=== PATIENT | female | born 1965 | race African-American/Black ===

== ENCOUNTER 2017-09-10 11:32 | Emergency (ER) | payer MEDICARE, MEDICAID | END 2017-09-10 13:30 | disposition home or self-care (01) | LOC: ERS 11:32 | DX: M19.072 Primary osteoarthritis, left ankle and foot (principal); I10 Essential (primary) hypertension; E03.9 Hypothyroidism, unspecified; J45.909 Unspecified asthma, uncomplicated; M06.9 Rheumatoid arthritis, unspecified; I25.10 Atherosclerotic heart disease of native coronary artery without angina pectoris; K21.9 Gastro-esophageal reflux disease without esophagitis; F41.9 Anxiety disorder, unspecified; F31.9 Bipolar disorder, unspecified; F20.9 Schizophrenia, unspecified | CPT/HCPCS: 99282 ==

== ENCOUNTER 2017-10-19 21:14 | Emergency (ER) | payer MEDICARE, MEDICAID | END 2017-10-19 22:55 | disposition home or self-care (01) | LOC: ERS 21:14 | DX: J20.9 Acute bronchitis, unspecified (principal); E03.9 Hypothyroidism, unspecified; I10 Essential (primary) hypertension; J45.909 Unspecified asthma, uncomplicated; M06.9 Rheumatoid arthritis, unspecified; I25.10 Atherosclerotic heart disease of native coronary artery without angina pectoris; K21.9 Gastro-esophageal reflux disease without esophagitis; F41.9 Anxiety disorder, unspecified; F31.9 Bipolar disorder, unspecified; F20.9 Schizophrenia, unspecified; Z86.73 Personal history of transient ischemic attack (TIA), and cerebral infarction without residual deficits | CPT/HCPCS: 87804; 99283 ==

== ENCOUNTER 2017-10-30 10:52 | Emergency (ER) | payer MEDICARE, MEDICAID | END 2017-10-30 11:36 | disposition left against medical advice (07) | LOC: ERS 10:52 | DX: Z53.21 Procedure and treatment not carried out due to patient leaving prior to being seen by health care provider (principal) ==

== ENCOUNTER 2017-11-15 12:06 | Outpatient (CLI) | payer MEDICARE, MEDICAID | END 2017-11-15 12:07 | disposition home or self-care (01) | LOC: BICMAMMO 12:06 | PROVIDERS: ATTEND Internal Medicine | DX: Z12.31 Encounter for screening mammogram for malignant neoplasm of breast (principal); K21.9 Gastro-esophageal reflux disease without esophagitis; R92.1 Mammographic calcification found on diagnostic imaging of breast; M16.0 Bilateral primary osteoarthritis of hip; Z80.3 Family history of malignant neoplasm of breast | CPT/HCPCS: 74018; 77063; 77067 ==

== ENCOUNTER 2018-01-12 00:10 | Emergency (ER) | payer MEDICARE, OTHER ==
[2018-01-12] MEDS ORDERED: Bacitracin Zinc 1 Packet ONE (01:56)
== END 2018-01-12 02:02 | disposition home or self-care (01) ==
LOC: ERS 00:10
DX: R04.0 Epistaxis (principal); J30.9 Allergic rhinitis, unspecified; E03.9 Hypothyroidism, unspecified; K21.9 Gastro-esophageal reflux disease without esophagitis; I10 Essential (primary) hypertension; M06.9 Rheumatoid arthritis, unspecified; F41.9 Anxiety disorder, unspecified; F31.9 Bipolar disorder, unspecified; F20.9 Schizophrenia, unspecified; Z86.73 Personal history of transient ischemic attack (TIA), and cerebral infarction without residual deficits
CPT/HCPCS: 99283

== ENCOUNTER 2018-01-17 10:19 | Emergency (ER) | payer MEDICARE, MEDICAID | END 2018-01-17 12:39 | disposition home or self-care (01) | LOC: ERS 10:19 | DX: R04.0 Epistaxis (principal); E03.9 Hypothyroidism, unspecified; I10 Essential (primary) hypertension; F31.9 Bipolar disorder, unspecified; F20.9 Schizophrenia, unspecified; F41.9 Anxiety disorder, unspecified; K21.9 Gastro-esophageal reflux disease without esophagitis; M06.9 Rheumatoid arthritis, unspecified; Z86.73 Personal history of transient ischemic attack (TIA), and cerebral infarction without residual deficits; Z79.899 Other long term (current) drug therapy | CPT/HCPCS: 99283 ==

== ENCOUNTER 2018-01-18 09:24 | Emergency (ER) | payer MEDICARE, MEDICAID ==
[2018-01-18 10:11] LABS: #Eosinphils 0.1 thou/uL (0.0-0.7); #Lymphocytes 1.3 thou/uL (1.20-3.40); #Monocytes 0.3 thou/uL (0.11-0.59); #Neutrophils 1.7 thou/uL (1.40-6.50); %Lymphocytes 38.6 % (21.0-51.0); %Monocytes 8.3 % (0.0-10.0); %Neutrophils 50.2 % (42.0-75.0); Hemoglobin 12.4 g/dL (12.0-16.0); Mean Corpuscular Hemoglobin 30.7 pg (27.0-31.0); Mean Corpuscular Volume 93.2 fl (81.0-99.0); Mean Platelet Volume 7.1 fL (7.4-10.4); Platelet Count 331 thou/uL (130-400); RBC Distribution Width 12.6 % (11.5-14.5); Red Blood Cell (RBC) Count 4.05 mill/uL (4.20-5.40); White Blood Cell (WBC) Count 3.3 thou/uL (4.8-10.8)
[2018-01-18 10:19] LABS: PTT 25.9 SEC (22.9-36.1); Prothrombin Time 13.1 SEC (12.0-14.7)
[2018-01-18 10:31] LABS: ALT (SGPT) 28 U/L (8-55); AST (SGOT) 37 U/L (5-34); Albumin 4.1 g/dL (3.5-5.0); Alkaline Phosphatase 58 U/L (40-150); Anion Gap 13 mmol/L (10-20); BUN (Urea Nitrogen) 12 mg/dL (9.8-20.1); Bilirubin, Total 0.4 mg/dL (0.2-1.2); Calc. Creatinine Clearance 0 mL/min (70-130); Calcium 9.1 mg/dL (7.8-10.44); Carbon Dioxide 24 mmol/L (22-29); Chloride 107 mmol/L (98-107); Estimated GFR-MDRD Greater than 90; Globulin 4.2 g/dL (2.4-3.5); Glucose 105 mg/dL (70-105); Potassium 4.3 mmol/L (3.5-5.1); Protein, Total 8.3 g/dL (6.0-8.3); Sodium 140 mmol/L (136-145)
[2018-01-18] MEDS ORDERED: Ondansetron HCl/PF 4 MG/2 ML Vial ONE (11:03)
[2018-01-18] MEDS ORDERED: Oxymetazoline HCl 0.05% ( 15 ML ) ONE (11:03)
[2018-01-18] MEDS ORDERED: cloNIDine 0.1 MG TAB ONE (11:27)
== END 2018-01-18 11:35 | disposition home or self-care (01) ==
LOC: ERS 09:24
DX: R04.0 Epistaxis (principal); I10 Essential (primary) hypertension; J45.909 Unspecified asthma, uncomplicated; E03.9 Hypothyroidism, unspecified; K21.9 Gastro-esophageal reflux disease without esophagitis; M06.9 Rheumatoid arthritis, unspecified; F41.9 Anxiety disorder, unspecified; F31.9 Bipolar disorder, unspecified; F20.9 Schizophrenia, unspecified; Z86.73 Personal history of transient ischemic attack (TIA), and cerebral infarction without residual deficits; Z79.899 Other long term (current) drug therapy
CPT/HCPCS: 80053; 85025; 85610; 85730; 96374; J2405

== ENCOUNTER 2018-02-04 10:22 | Emergency (ER) | payer MEDICARE, MEDICAID | END 2018-02-04 11:37 | disposition home or self-care (01) | LOC: ERS 10:22 | DX: S76.312A Strain of muscle, fascia and tendon of the posterior muscle group at thigh level, left thigh, initial encounter (principal); M17.11 Unilateral primary osteoarthritis, right knee; E03.9 Hypothyroidism, unspecified; K21.9 Gastro-esophageal reflux disease without esophagitis; I10 Essential (primary) hypertension; Z86.73 Personal history of transient ischemic attack (TIA), and cerebral infarction without residual deficits; F41.9 Anxiety disorder, unspecified; F31.9 Bipolar disorder, unspecified; F20.9 Schizophrenia, unspecified; Z79.899 Other long term (current) drug therapy; X50.1XXA Overexertion from prolonged static or awkward postures, initial encounter | CPT/HCPCS: 99283 ==

== ENCOUNTER 2018-02-13 10:14 | Emergency (ER) | payer MEDICARE, MEDICAID ==
[2018-02-13 11:09] LABS: #Eosinphils 0.1 thou/uL (0.0-0.7); #Lymphocytes 1.2 thou/uL (1.20-3.40); #Monocytes 0.3 thou/uL (0.11-0.59); #Neutrophils 2.2 thou/uL (1.40-6.50); %Basophils 0.9 % (0.0-1.0); %Eosinophils 2.3 % (0.0-10.0); %Lymphocytes 31.6 % (21.0-51.0); %Monocytes 8.3 % (0.0-10.0); %Neutrophils 56.9 % (42.0-75.0); Hemoglobin 12.1 g/dL (12.0-16.0); Mean Corpuscular HGB CONC 33.4 g/dL (32.0-36.0); Mean Corpuscular Hemoglobin 31.2 pg (27.0-31.0); Mean Corpuscular Volume 93.4 fl (81.0-99.0); Mean Platelet Volume 6.6 fL (7.4-10.4); Platelet Count 380 thou/uL (130-400); RBC Distribution Width 12.8 % (11.5-14.5); Red Blood Cell (RBC) Count 3.88 mill/uL (4.20-5.40); White Blood Cell (WBC) Count 3.9 thou/uL (4.8-10.8)
[2018-02-13 11:27] LABS: ALT (SGPT) 21 U/L (8-55); AST (SGOT) 28 U/L (5-34); Albumin 4.1 g/dL (3.5-5.0); Alkaline Phosphatase 59 U/L (40-150); Anion Gap 12 mmol/L (10-20); BUN (Urea Nitrogen) 18 mg/dL (9.8-20.1); Bilirubin, Total 0.6 mg/dL (0.2-1.2); CRP (Inflammatory) 2.02 mg/dL (= or < 0.5); Calc. Creatinine Clearance 0 mL/min (70-130); Calcium 9.6 mg/dL (7.8-10.44); Carbon Dioxide 29 mmol/L (22-29); Chloride 104 mmol/L (98-107); Estimated GFR-MDRD Greater than 90; Globulin 4.2 g/dL (2.4-3.5); Glucose 109 mg/dL (70-105); Potassium 4.3 mmol/L (3.5-5.1); Protein, Total 8.3 g/dL (6.0-8.3); Sodium 141 mmol/L (136-145)
--- NOTE | 2018-02-13 12:19 | RAD ---
LEFT KNEE FOUR VIEWS: History: 52-year-old female with bilateral knee pain, right worse than left, with swelling. FINDINGS: Osteoarthrosis changes are noted, particularly involving the femoral patellar compartment as well as the medial compartment followed by the lateral compartment. No acute fracture or dislocation. No evid ence for abnormal joint effusion. IMPRESSION: Tricompartment degenerative and osteoarthrosis changes without acute fracture or dislocation. POS: [facility]
--- NOTE | 2018-02-13 12:27 | RAD ---
RIGHT KNEE FOUR VIEWS: History: 52-year-old female with history of bilateral knee pain, worse on the right side. Comparison: 03-24-16 FINDINGS: Tricompartment arthrosis and degenerative changes, most marked involving the femoral patellar compart ment followed by the medial compartment. There is marked distention of the suprapatellar recess, evid ence for a large joint effusion which is worse than on the prior 03-24-16 study. No acute fracture or d islocation. IMPRESSION: Significant distension of the suprapatellar recess, evidence for extensive joint effusion. Tricompart ment arthrosis and degenerative changes of the knee joint without acute fracture or dislocation. Depe nding upon concern, a follow up nonemergent MRI study might allow further assessment in regards to th e etiology of the extensive knee joint fluid. No acute fracture or dislocation. POS: [facility]
== END 2018-02-13 12:13 | disposition home or self-care (01) ==
LOC: ERS 10:14
DX: M17.11 Unilateral primary osteoarthritis, right knee (principal); E03.9 Hypothyroidism, unspecified; K21.9 Gastro-esophageal reflux disease without esophagitis; I10 Essential (primary) hypertension; M06.9 Rheumatoid arthritis, unspecified; F41.9 Anxiety disorder, unspecified; F31.9 Bipolar disorder, unspecified; F20.9 Schizophrenia, unspecified; Z86.73 Personal history of transient ischemic attack (TIA), and cerebral infarction without residual deficits; Z79.899 Other long term (current) drug therapy
CPT/HCPCS: 36415; 80053; 85025; 85652; 86140

== ENCOUNTER 2018-04-19 12:24 | Emergency (ER) | payer MEDICARE, MEDICAID ==
[~2018-04-19 12:24] MED LIST: ISOVUE-370 76%-LOCM 1 ML ONE
[2018-04-19 13:00] LABS: #Basophils 0.1 thou/uL (0.0-0.2); #Eosinphils 0.1 thou/uL (0.0-0.7); #Lymphocytes 1.4 thou/uL (1.20-3.40); #Monocytes 0.5 thou/uL (0.11-0.59); #Neutrophils 4.9 thou/uL (1.40-6.50); %Basophils 1.1 % (0.0-1.0); %Eosinophils 1.6 % (0.0-10.0); %Lymphocytes 19.3 % (21.0-51.0); %Monocytes 7.5 % (0.0-10.0); %Neutrophils 70.5 % (42.0-75.0); Hemoglobin 13.5 g/dL (12.0-16.0); Mean Corpuscular HGB CONC 33.2 g/dL (32.0-36.0); Mean Corpuscular Hemoglobin 31.2 pg (27.0-31.0); Mean Corpuscular Volume 93.9 fL (78.0-98.0); Mean Platelet Volume 7.1 fL (7.4-10.4); Platelet Count 311 thou/uL (130-400); RBC Distribution Width 12.9 % (11.5-14.5); Red Blood Cell (RBC) Count 4.33 mill/uL (4.20-5.40)
[2018-04-19 13:17] LABS: CKMB 1.6 ng/mL (0-6.6); Troponin I Less than 0.010 ng/mL (< 0.028)
[2018-04-19 13:18] LABS: ALT (SGPT) 47 U/L (8-55); AST (SGOT) 67 U/L (5-34); Albumin 4.3 g/dL (3.5-5.0); Alkaline Phosphatase 66 U/L (40-150); Anion Gap 13 mmol/L (10-20); BUN (Urea Nitrogen) 12 mg/dL (9.8-20.1); Bilirubin, Total 0.5 mg/dL (0.2-1.2); CK (CPK) 1035 U/L (29-168); Calc. Creatinine Clearance 0 mL/min (70-130); Calcium 9.7 mg/dL (7.8-10.44); Carbon Dioxide 26 mmol/L (22-29); Chloride 102 mmol/L (98-107); Estimated GFR-MDRD Greater than 90; Globulin 4.4 g/dL (2.4-3.5); Glucose 101 mg/dL (70-105); Lipase 20 U/L (8-78); Potassium 4.2 mmol/L (3.5-5.1); Protein, Total 8.7 g/dL (6.0-8.3); Sodium 137 mmol/L (136-145)
--- NOTE | 2018-04-19 13:37 | RAD ---
SINGLE VIEW CHEST: HISTORY: Chest pain. COMPARISON: 05/20/2016 FINDINGS: Single view of the chest show normal sized cardiomediastinal silhouette. There is no evidence of cons olidation, mass, or pleural effusion. The bones are unremarkable. IMPRESSION: No evidence of acute cardiopulmonary disease. POS: [facility]
--- NOTE | 2018-04-19 14:10 | CT ---
POST CONTRAST SOFT TISSUE NECK CT: History: Throat pain, difficulty swallowing. Comparison: None. Technique: Post contrast soft tissue neck CT was performed in the axial plane. Reformatted images are submitted for interpretation. FINDINGS: The visualized brain parenchyma and orbits are unremarkable. Adequate aeration of the mastoid air cells. Mild mucosal disease of maxillary sinuses. There is mass effect upon the posterior left and right supraglottic larynx and hypopharynx due to med ialization of both carotid arteries. Overall, the aerodigestive digestive tract is patent. No mucosal abnormality. No obvious masses within the oral cavity. Evaluation is slightly limited by artifact. M idline fatty roof of the tongue is preserved. Symmetric attenuation of parotid and submandibular glands. Thyroid gland is minimally heterogenous wi th respect to the left thyroid lobe. Symmetric attenuation of the sternocleidomastoid muscle. No evid ence of lymphadenopathy. There is no prevertebral soft tissue swelling. There are varying degrees of central canal stenosis and neural foraminal narrowing on the basis of de generative change. There is extensive osteophyte formation of the cervical spine noted. Upper mediastinum and lung apices are unremarkable. IMPRESSION: 1. No acute abnormality with regards to the soft tissues of the neck. No evidence of a peritonsillar abscess. 2. Degenerative change of the cervical spine with varying degrees of central canal stenosis and cloby inal narrowing. Extensive osteophyte formation. 3. Mildly heterogeneous left thyroid lobe. Non-emergent thyroid ultrasound. POS: [facility]
[2018-04-19] MEDS ORDERED: Dexamethasone 4 mg/ml Vial ONE (15:04)
== END 2018-04-19 15:19 | disposition home or self-care (01) ==
LOC: ERS 12:24
DX: J02.9 Acute pharyngitis, unspecified (principal); E03.9 Hypothyroidism, unspecified; K21.9 Gastro-esophageal reflux disease without esophagitis; I10 Essential (primary) hypertension; M19.90 Unspecified osteoarthritis, unspecified site; F31.9 Bipolar disorder, unspecified; F41.9 Anxiety disorder, unspecified; F20.9 Schizophrenia, unspecified; Z86.73 Personal history of transient ischemic attack (TIA), and cerebral infarction without residual deficits; Z79.899 Other long term (current) drug therapy
CPT/HCPCS: 36415; 70491; 71045; 80053; 82550; 82553; 83690; 84484; 85025; 87081; 87430; 93005; 94760; 96361; 96374; J1100

== ENCOUNTER 2018-05-06 12:54 | Emergency (ER) | payer MEDICARE, MEDICAID | END 2018-05-06 14:03 | disposition home or self-care (01) | LOC: ERS 12:54 | DX: H65.92 Unspecified nonsuppurative otitis media, left ear (principal); E03.9 Hypothyroidism, unspecified; K21.9 Gastro-esophageal reflux disease without esophagitis; I10 Essential (primary) hypertension; M06.9 Rheumatoid arthritis, unspecified; F41.9 Anxiety disorder, unspecified; F32.9 Major depressive disorder, single episode, unspecified; Z86.73 Personal history of transient ischemic attack (TIA), and cerebral infarction without residual deficits | CPT/HCPCS: 99282 ==

== ENCOUNTER 2018-11-27 20:40 | Emergency (ER) | payer MEDICARE, MEDICAID ==
[2018-11-27] MEDS ORDERED: Oxymetazoline HCl 0.05% ( 15 ML ) ONE (21:49)
== END 2018-11-27 23:06 | disposition home or self-care (01) ==
LOC: ERS 20:40
DX: R04.0 Epistaxis (principal); E03.9 Hypothyroidism, unspecified; K21.9 Gastro-esophageal reflux disease without esophagitis; I10 Essential (primary) hypertension; Z86.73 Personal history of transient ischemic attack (TIA), and cerebral infarction without residual deficits; F41.9 Anxiety disorder, unspecified; F31.9 Bipolar disorder, unspecified; F20.9 Schizophrenia, unspecified; Z79.899 Other long term (current) drug therapy
CPT/HCPCS: 30903

== ENCOUNTER 2019-02-11 09:36 | Emergency (ER) | payer MEDICARE, MEDICAID ==
[2019-02-11 12:01] LABS: Hemoglobin 12.9 g/dL (12.0-16.0)
== END 2019-02-11 12:15 | disposition home or self-care (01) ==
LOC: ERS 09:36
DX: R04.0 Epistaxis (principal); E03.9 Hypothyroidism, unspecified; K21.9 Gastro-esophageal reflux disease without esophagitis; I10 Essential (primary) hypertension; Z86.73 Personal history of transient ischemic attack (TIA), and cerebral infarction without residual deficits; F41.9 Anxiety disorder, unspecified; F31.9 Bipolar disorder, unspecified; F20.9 Schizophrenia, unspecified; Z79.899 Other long term (current) drug therapy
CPT/HCPCS: 85014; 85018; 99283

== ENCOUNTER 2019-10-12 01:13 | Emergency (ER) | payer MEDICAID, MEDICARE, OTHER ==
[2019-10-12 02:06] LABS: Bilirubin Negative (Negative); Blood, Urine Negative (Negative); Clarity Clear (Clear); Glucose, Urine (Dipstick) Normal (Negative); Leukocyte Negative Leu/uL (Negative); Nitrite Negative (Negative); Protein, Urine (Dipstick) Negative (Neg-Trace); Urobilinogen Normal mg/dL (Less than 2)
[2019-10-12 02:07] LABS: Pregnancy Test - Urine (BHCG) Negative (Negative); Pregu Control Background? CLEAR/WHITE (CLR/WHITE); Pregu Control Bar Appear? YES (CONTROL BAR); Specific Gravity 1.003 (1.002-1.036)
== END 2019-10-12 03:11 | disposition home or self-care (01) ==
LOC: ERS 01:13
DX: M54.5 Low back pain (principal); K21.9 Gastro-esophageal reflux disease without esophagitis; E03.9 Hypothyroidism, unspecified; I10 Essential (primary) hypertension; F20.9 Schizophrenia, unspecified; M06.9 Rheumatoid arthritis, unspecified; Z86.73 Personal history of transient ischemic attack (TIA), and cerebral infarction without residual deficits; Z79.899 Other long term (current) drug therapy
CPT/HCPCS: 81003; 81025; 99283

== ENCOUNTER 2020-07-12 01:22 | Emergency (ER) | payer MEDICARE, MEDICAID ==
[2020-07-12] MEDS ORDERED: Ketorolac Tromethamine 30 MG/ML VIAL ONE (01:55)
[2020-07-12 02:09] LABS: #Lymphocytes 1.4 thou/uL (1.20-3.40); #Monocytes 0.5 thou/uL (0.11-0.59); #Neutrophils 6.1 thou/uL (1.40-6.50); %Basophils 0.4 % (0.0-1.0); %Eosinophils 0.6 % (0.0-10.0); %Lymphocytes 17.1 % (21.0-51.0); %Monocytes 5.7 % (0.0-10.0); %Neutrophils 76.2 % (42.0-75.0); Hemoglobin 13.3 g/dL (12.0-16.0); Mean Corpuscular HGB CONC 33.6 g/dL (32.0-36.0); Mean Corpuscular Hemoglobin 31.7 pg (27.0-31.0); Mean Corpuscular Volume 94.4 fL (78.0-98.0); Mean Platelet Volume 8.1 fL (7.4-10.4); Platelet Count 318 thou/uL (130-400); RBC Distribution Width 13.2 % (11.5-14.5); Red Blood Cell (RBC) Count 4.18 mill/uL (4.20-5.40)
[2020-07-12 03:06] LABS: Albumin 3.5 g/dL (3.5-5.0)
[2020-07-12 03:07] LABS: Chloride 101 mmol/L (98-107); Potassium 3.6 mmol/L (3.5-5.1); Sodium 134 mmol/L (136-145)
[2020-07-12 03:08] LABS: Calcium 8.7 mg/dL (7.8-10.44); Glucose 105 mg/dL (70-105)
[2020-07-12 03:09] LABS: Globulin 3.8 g/dL (2.4-3.5); Protein, Total 7.3 g/dL (6.0-8.3)
[2020-07-12 03:10] LABS: Anion Gap 17 mmol/L (10-20); Bilirubin, Total 0.3 mg/dL (0.2-1.2); Carbon Dioxide 20 mmol/L (22-29)
[2020-07-12 03:11] LABS: Alkaline Phosphatase 68 U/L (40-110)
[2020-07-12 03:12] LABS: Calc. Creatinine Clearance 0 mL/min (70-130); Estimated GFR-MDRD Greater than 90
[2020-07-12 03:13] LABS: AST (SGOT) 55 U/L (5-34); BUN (Urea Nitrogen) 9 mg/dL (9.8-20.1)
[2020-07-12 03:14] LABS: ALT (SGPT) 42 U/L (8-55)
--- NOTE | 2020-07-12 08:17 | CT ---
PRELIMINARY REPORT/[facility]/EMERGENCY AFTER HOURS PROCEDURE: Receipt of this report by the clinical staff was confirmed with Rosa Moe RN by Lila Lama on Jul 12, 2020 02:44:00 CDT. Addendum electronically signed by Lila Lama on July 12, 2020 2:44:51 AM CDT EXAM: CT Abdomen and Pelvis Without Intravenous Contrast CLINICAL HISTORY: RLQ PAIN THAT STARTED 3 HOURS AGO. Surgical history of hysterectomy *pt refusing IV contrast TECHNIQUE: Axial computed tomography images of the abdomen and pelvis without intravenous contrast. CONTRAST: None. COMPARISON: None provided. FINDINGS: LUNG BASES: 3-4 mm lateral right lower lobe lung nodule (series 2, image 3), requiring a further foll ow-up. No basilar airspace consolidation or pleural effusion. LIVER: Hepatic steatosis. GALLBLADDER AND BILE DUCTS: Unremarkable. No calcified stone. No ductal dilation. PANCREAS: Unremarkable. SPLEEN: Normal. Inferior marginal splenule. ADRENAL GLANDS: Unremarkable. KIDNEYS, URETERS, AND BLADDER: Likely senescent bilateral symmetric, perinephric stranding. No hydro nephrosis or nephrolithiasis. No ureteral or bladder calculi. Unremarkable ureters and urinary bladder. STOMACH AND BOWEL: No obstruction. The stomach and small bowel are within normal limits. There is m ild wall thickening and pericolonic stranding about the distal sigmoid colon, with multiple associated diverticula. APPENDIX: No CT evidence for appendicitis. PERITONEUM: No free fluid. No free air. No organized fluid collections. LYMPH NODES: No lymphadenopathy. REPRODUCTIVE: Post hysterectomy. Unremarkable adnexa. Phleboliths within the gonadal veins. VASCULATURE: No aortic aneurysm. ABDOMINAL WALL AND SOFT TISSUES: Unremarkable. BONES: Findings suggestive of bilateral femoral head AVN, without femoral head collapse. Mild degene rative disc disease of the lumbar spine, notably at L4-L5. IMPRESSION: 1. Findings suggestive of sigmoid diverticulitis/colitis. 2. 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 3. Hepatic steatosis. ELECTRONICALLY SIGNED BY: Patrice Neville MD Jul 12, 2020 2:36:10 AM CDT FINAL REPORT EMERGENT AFTER HOURS NONCONTRAST CT ABDOMEN AND PELVIS: HISTORY: Right lower quadrant abdominal pain that started 3 hours ago. History of prior hysterectomy. COMPARISON: None IMPRESSION: 1. Nonspecific 4 mm pulmonary nodule right lower lobe. 2. Colonic diverticula involving the descending and sigmoid colon. There is wall thickening involving the sigmoid colon with adjacent inflammatory changes. Findings are likely attributable to diverticulitis/colitis. Follow-up evaluation is recommended to ensure resolution of bowel wall thicke jaylin. 3. Hepatic steatosis with areas of fatty sparing in the left hepatic lobe. 4. Osteonecrosis involving the femoral heads bilaterally. 5. Evidence of hysterectomy. 6. Findings are in agreement with preliminary report by [facility]. Transcribed Date/Time: 07/12/2020 8:38 AM
== END 2020-07-12 04:14 | disposition home or self-care (01) ==
LOC: ERS 01:22
DX: K57.32 Diverticulitis of large intestine without perforation or abscess without bleeding (principal); E03.9 Hypothyroidism, unspecified; K21.9 Gastro-esophageal reflux disease without esophagitis; I10 Essential (primary) hypertension; Z86.73 Personal history of transient ischemic attack (TIA), and cerebral infarction without residual deficits; F41.9 Anxiety disorder, unspecified; F32.9 Major depressive disorder, single episode, unspecified; F20.9 Schizophrenia, unspecified; Z79.899 Other long term (current) drug therapy
CPT/HCPCS: 36415; 74176; 80053; 85025; 96374; J1885

== ENCOUNTER 2021-11-01 05:19 | Emergency (ER) | payer MEDICARE, MEDICAID | END 2021-11-01 05:59 | disposition home or self-care (01) | LOC: ERS 05:19 | DX: B34.9 Viral infection, unspecified (principal); E03.9 Hypothyroidism, unspecified; K21.9 Gastro-esophageal reflux disease without esophagitis; I10 Essential (primary) hypertension; Z86.73 Personal history of transient ischemic attack (TIA), and cerebral infarction without residual deficits | CPT/HCPCS: 99284 ==

== ENCOUNTER 2021-11-08 09:19 | Emergency (ER) | payer MEDICARE, MEDICAID ==
[2021-11-08 09:54] LABS: Hemoglobin 13.6 g/dL (12.0-16.0); Mean Corpuscular HGB CONC 32.7 g/dL (32.0-36.0); Mean Corpuscular Hemoglobin 30.2 pg (27.0-31.0); Mean Corpuscular Volume 92.2 fL (78.0-98.0); Platelet Count 288 thou/uL (130-400); RBC Distribution Width 12.3 % (11.5-14.5); Red Blood Cell (RBC) Count 4.49 mill/uL (4.20-5.40); White Blood Cell (WBC) Count 3.4 thou/uL (4.8-10.8)
[2021-11-08 10:09] LABS: ALT (SGPT) 44 U/L (8-55); AST (SGOT) 62 U/L (5-34); Albumin 3.8 g/dL (3.5-5.0); Alkaline Phosphatase 59 U/L (40-110); Anion Gap 18 mmol/L (10-20); BUN (Urea Nitrogen) 9 mg/dL (9.8-20.1); Bilirubin, Total 0.4 mg/dL (0.2-1.2); Calc. Creatinine Clearance 0 mL/min (70-130); Calcium 9.1 mg/dL (7.8-10.44); Carbon Dioxide 21 mmol/L (22-29); Chloride 102 mmol/L (98-107); Globulin 4.5 g/dL (2.4-3.5); Glucose 115 mg/dL (70-105); Lipase 32 U/L (8-78); Potassium 3.7 mmol/L (3.5-5.1); Protein, Total 8.3 g/dL (6.0-8.3); Sodium 137 mmol/L (136-145)
[2021-11-08 10:17] LABS: Band 3 % (5-11); Lymphocytes 53 % (21-51); MDiff Complete? YES; Metamyelocyte 2 % (0-0); Monocytes 2 % (0-10); Myelocyte 3 % (0-0); Neutrophil 31 % (42-75); RBC Morphology Normal; Reactive Lymphocytes 6 % (0-10)
== END 2021-11-08 11:58 | disposition home or self-care (01) ==
LOC: ERS 09:19
DX: R07.89 Other chest pain (principal); R05.9 Cough, unspecified; E03.9 Hypothyroidism, unspecified; K21.9 Gastro-esophageal reflux disease without esophagitis; I10 Essential (primary) hypertension; M06.9 Rheumatoid arthritis, unspecified; Z86.73 Personal history of transient ischemic attack (TIA), and cerebral infarction without residual deficits; Z79.899 Other long term (current) drug therapy
CPT/HCPCS: 71045; 80053; 83690; 84484; 85025; 93005; 94760

== ENCOUNTER 2022-06-04 00:25 | Emergency (ER) | payer MEDICARE, MEDICAID ==
[2022-06-04 01:09] LABS: #Basophils 0.1 thou/uL (0.0-0.2); #Eosinphils 0.1 thou/uL (0.0-0.7); #Lymphocytes 2.5 thou/uL (1.20-3.40); #Monocytes 0.5 thou/uL (0.11-0.59); #Neutrophils 2.6 thou/uL (1.40-6.50); %Eosinophils 2.5 % (0.0-10.0); %Neutrophils 44.6 % (42.0-75.0); Mean Corpuscular HGB CONC 34.3 g/dL (32.0-36.0); Mean Corpuscular Hemoglobin 32.3 pg (27.0-31.0); Mean Corpuscular Volume 94.2 fL (78.0-98.0); Mean Platelet Volume 6.6 fL (7.4-10.4); Platelet Count 293 thou/uL (130-400); Red Blood Cell (RBC) Count 4.01 mill/uL (4.20-5.40); White Blood Cell (WBC) Count 5.9 thou/uL (4.8-10.8)
[2022-06-04 01:22] LABS: ALT (SGPT) 37 U/L (8-55); AST (SGOT) 77 U/L (5-34); Albumin 3.6 g/dL (3.5-5.0); Alkaline Phosphatase 80 U/L (40-110); Anion Gap 17 mmol/L (10-20); BUN (Urea Nitrogen) 10 mg/dL (9.8-20.1); Bilirubin, Total 0.3 mg/dL (0.2-1.2); Calc. Creatinine Clearance 0 mL/min (70-130); Calcium 8.7 mg/dL (7.8-10.44); Carbon Dioxide 22 mmol/L (22-29); Chloride 95 mmol/L (98-107); Estimated GFR 100; Globulin 4.3 g/dL (2.4-3.5); Glucose 110 mg/dL (70-105); Potassium 3.3 mmol/L (3.5-5.1); Protein, Total 7.9 g/dL (6.0-8.3); Sodium 131 mmol/L (136-145)
== END 2022-06-04 03:24 | disposition home or self-care (01) ==
LOC: ERS 00:25
DX: S06.9X1A Unspecified intracranial injury with loss of consciousness of 30 minutes or less, initial encounter (principal); R55 Syncope and collapse; K21.9 Gastro-esophageal reflux disease without esophagitis; I10 Essential (primary) hypertension; Z86.73 Personal history of transient ischemic attack (TIA), and cerebral infarction without residual deficits; W18.39XA Other fall on same level, initial encounter; Z79.899 Other long term (current) drug therapy
CPT/HCPCS: 36415; 70450; 72125; 80053; 85025; 93005

== ENCOUNTER 2022-06-18 09:20 | Emergency (ER) | payer MEDICARE, OTHER ==
[2022-06-18] MEDS ORDERED: Dexameth. Sod Phosp. 10 MG/ML (CHEMO USE ONLY) ONE (10:26)
[2022-06-18] MEDS ORDERED: Ketorolac Tromethamine 30 MG/ML VIAL ONE (10:26)
== END 2022-06-18 11:43 | disposition home or self-care (01) ==
LOC: ERS 09:20
DX: M25.551 Pain in right hip (principal); E03.9 Hypothyroidism, unspecified; K21.9 Gastro-esophageal reflux disease without esophagitis; I10 Essential (primary) hypertension; Z79.899 Other long term (current) drug therapy
CPT/HCPCS: 72170; 96372; J1100; J1885

== ENCOUNTER 2022-06-21 02:35 | Emergency (ER) | payer MEDICARE, OTHER ==
[2022-06-21] MEDS ORDERED: Ketorolac Tromethamine 30 MG/ML VIAL ONE (03:10)
== END 2022-06-21 03:20 | disposition home or self-care (01) ==
LOC: ERS 02:35
DX: G89.29 Other chronic pain (principal); M25.551 Pain in right hip; E03.9 Hypothyroidism, unspecified; K21.9 Gastro-esophageal reflux disease without esophagitis; Z86.73 Personal history of transient ischemic attack (TIA), and cerebral infarction without residual deficits; Z79.899 Other long term (current) drug therapy
CPT/HCPCS: 96372; 99283; J1885

== ENCOUNTER 2022-11-18 23:10 | Emergency (ER) | payer MEDICARE, OTHER | END 2022-11-18 23:56 | disposition home or self-care (01) | LOC: ERS 23:10 | DX: B34.9 Viral infection, unspecified (principal); K21.9 Gastro-esophageal reflux disease without esophagitis; I10 Essential (primary) hypertension; E03.9 Hypothyroidism, unspecified | CPT/HCPCS: 71045; 93005 ==

== ENCOUNTER 2023-04-06 22:18 | Emergency (ER) | payer MEDICARE, MEDICAID ==
[2023-04-07 00:08] LABS: #Eosinphils 0.1 thou/uL (0.0-0.7); #Monocytes 0.5 thou/uL (0.11-0.59); #Neutrophils 2.7 thou/uL (1.40-6.50); %Basophils 0.5 % (0.0-1.0); %Eosinophils 1.7 % (0.0-10.0); %Neutrophils 45.9 % (42.0-75.0); Mean Corpuscular HGB CONC 33.7 g/dL (32.0-36.0); Mean Corpuscular Hemoglobin 30.8 pg (27.0-31.0); Mean Corpuscular Volume 91.5 fl (78.0-98.0); Mean Platelet Volume 9.3 fL (7.4-10.4); Platelet Count 281 10x3/uL (130-400); RBC Distribution Width 13.7 % (11.5-14.5); Red Blood Cell (RBC) Count 3.89 mill/uL (4.20-5.40); White Blood Cell (WBC) Count 5.9 10x3/uL (4.8-10.8)
[2023-04-07] MEDS ORDERED: Furosemide 40 MG/4 ML VIAL ONE (00:36)
[2023-04-07] MEDS ORDERED: Nitroglycerin 2% Ointment 1 INCH/1 GM Packet ONE (00:36)
[2023-04-07 01:20] LABS: ALT (SGPT) 27 U/L (8-55); AST (SGOT) 54 U/L (5-34); Albumin 3.7 g/dL (3.5-5.0); Alkaline Phosphatase 55 U/L (40-110); Anion Gap 17 mmol/L (10-20); BUN (Urea Nitrogen) 14 mg/dL (9.8-20.1); Bilirubin, Total 0.4 mg/dL (0.2-1.2); CK (CPK) 104 U/L (29-168); Calc. Creatinine Clearance 0 mL/min (70-130); Calcium 8.7 mg/dL (7.8-10.44); Carbon Dioxide 21 mmol/L (22-29); Chloride 97 mmol/L (98-107); Estimated GFR 100; Glucose 96 mg/dL (70-105); Lipase 40 U/L (8-78); Potassium 3.1 mmol/L (3.5-5.1); Protein, Total 7.7 g/dL (6.0-8.3); Sodium 132 mmol/L (136-145)
== END 2023-04-07 03:12 | disposition home or self-care (01) ==
LOC: ERS 22:18
DX: J45.901 Unspecified asthma with (acute) exacerbation (principal); M79.89 Other specified soft tissue disorders; E03.9 Hypothyroidism, unspecified; K21.9 Gastro-esophageal reflux disease without esophagitis; I10 Essential (primary) hypertension; E78.5 Hyperlipidemia, unspecified; Z86.73 Personal history of transient ischemic attack (TIA), and cerebral infarction without residual deficits
CPT/HCPCS: 36415; 71045; 80053; 82550; 83690; 83880; 84484; 85025; 93005; 93970; 96374; J1940

== ENCOUNTER 2023-11-24 11:29 | Emergency (ER) | payer MEDICARE, MEDICAID ==
[2023-11-24 13:59] LABS: SARS-CoV-2 NAA Rapid Test Not Detected (NotDetected)
== END 2023-11-24 14:36 | disposition home or self-care (01) ==
LOC: ERS 11:29
DX: J06.9 Acute upper respiratory infection, unspecified (principal); I10 Essential (primary) hypertension; E78.5 Hyperlipidemia, unspecified; E03.9 Hypothyroidism, unspecified; Z55.6 Problems related to health literacy; Z79.899 Other long term (current) drug therapy
CPT/HCPCS: 0240U; 71046; 99283

== ENCOUNTER 2024-05-06 07:04 | Emergency (ER) | payer MEDICARE, MEDICAID ==
[2024-05-06 08:25] LABS: #Basophils 0.03 10x3/uL (0.0-0.2); %Basophils 0.5 % (0.0-1.0); %Eosinophils 1.4 % (0.0-10.0); %Lymphocytes 19.5 % (21.0-51.0); %Monocytes 8.4 % (0.0-10.0); %Neutrophils 69.9 % (42.0-75.0); Hematocrit 36.2 % (36.0-47.0); Hemoglobin 12.4 g/dL (12.0-16.0); Mean Corpuscular HGB CONC 34.3 g/dL (32.0-36.0); Mean Corpuscular Hemoglobin 30.9 pg (27.0-31.0); Mean Corpuscular Volume 90.3 fL (78.0-98.0); Mean Platelet Volume 9.3 fL (7.4-10.4); Platelet Count 283 10x3/uL (130-400); RBC Distribution Width 13.9 % (11.5-14.5); Red Blood Cell (RBC) Count 4.01 mill/uL (4.20-5.40)
[2024-05-06] MEDS ORDERED: Clindamycin/D5W 900 MG in Premix 1 BAG IVPB SCH (08:30)
[2024-05-06 08:45] LABS: CRP,High Sensitivity (Inhouse) 1.63 mg/dL (< or = 0.5)
[2024-05-06 08:46] LABS: ALT (SGPT) 18 U/L (8-55); AST (SGOT) 27 U/L (5-34); Albumin 3.4 g/dL (3.4-4.8); Alkaline Phosphatase 59 U/L (40-110); Anion Gap 14 mmol/L (10-20); BUN (Urea Nitrogen) 15 mg/dL (9.8-20.1); Bilirubin, Total 0.3 mg/dL (0.2-1.2); Calc. Creatinine Clearance 0 mL/min (70-130); Calcium 9.1 mg/dL (7.8-10.44); Carbon Dioxide 22 mmol/L (23-31); Chloride 107 mmol/L (98-107); Estimated GFR 99; Globulin 4.2 g/dL (2.4-3.5); Glucose 108 mg/dL (80-115); Potassium 3.9 mmol/L (3.5-5.1); Protein, Total 7.6 g/dL (5.8-8.1); Sodium 139 mmol/L (136-145)
[2024-05-06] MEDS ORDERED: Morphine 4 MG/ML VIAL ONE (09:55)
[2024-05-06] MEDS ORDERED: Iopamidol-370 76% 500 ML MDV (1 ML CHARGE) ONE (10:37)
== END 2024-05-06 12:08 | disposition home or self-care (01) ==
LOC: ERS 07:04
DX: K04.7 Periapical abscess without sinus (principal); L03.211 Cellulitis of face; I10 Essential (primary) hypertension; E78.5 Hyperlipidemia, unspecified; E03.9 Hypothyroidism, unspecified
CPT/HCPCS: 70491; 80053; 83605; 85025; 86141; 87040; J2270; J3490; Q9967

== ENCOUNTER 2024-05-07 06:24 | Emergency (ER) | payer MEDICARE, MEDICAID ==
[2024-05-07 07:46] LABS: #Basophils 0.03 10x3/uL (0.0-0.2); %Basophils 0.4 % (0.0-1.0); %Lymphocytes 13.4 % (21.0-51.0); %Monocytes 8.4 % (0.0-10.0); %Neutrophils 76.4 % (42.0-75.0); Hematocrit 35.5 % (36.0-47.0); Hemoglobin 11.7 g/dL (12.0-16.0); Mean Corpuscular Hemoglobin 30.9 pg (27.0-31.0); Mean Corpuscular Volume 93.7 fL (78.0-98.0); Mean Platelet Volume 9.8 fL (7.4-10.4); Platelet Count 270 10x3/uL (130-400); RBC Distribution Width 14.4 % (11.5-14.5); Red Blood Cell (RBC) Count 3.79 mill/uL (4.20-5.40)
[2024-05-07] MEDS ORDERED: Morphine 4 MG/ML VIAL ONE (08:13)
[2024-05-07 08:23] LABS: ALT (SGPT) 15 U/L (8-55); AST (SGOT) 21 U/L (5-34); Albumin 3.3 g/dL (3.4-4.8); Alkaline Phosphatase 59 U/L (40-110); Anion Gap 13 mmol/L (10-20); BUN (Urea Nitrogen) 16 mg/dL (9.8-20.1); Calc. Creatinine Clearance 0 mL/min (70-130); Calcium 9.4 mg/dL (7.8-10.44); Carbon Dioxide 26 mmol/L (23-31); Chloride 106 mmol/L (98-107); Estimated GFR 92; Globulin 4.2 g/dL (2.4-3.5); Glucose 114 mg/dL (80-115); Potassium 3.8 mmol/L (3.5-5.1); Protein, Total 7.5 g/dL (5.8-8.1); Sodium 141 mmol/L (136-145)
[2024-05-07] MEDS ORDERED: Clindamycin/D5W 900 MG in Premix 1 BAG IVPB SCH (08:30)
[2024-05-07 08:44] LABS: Bilirubin, Total 0.7 mg/dL (0.2-1.2)
== END 2024-05-07 11:00 | disposition home or self-care (01) ==
LOC: ERS 06:24
DX: K04.7 Periapical abscess without sinus (principal); F41.9 Anxiety disorder, unspecified; I10 Essential (primary) hypertension; E78.5 Hyperlipidemia, unspecified; Z79.899 Other long term (current) drug therapy
CPT/HCPCS: 36415; 80053; 85025; J2270; J3490

== ENCOUNTER 2024-05-08 21:16 | Inpatient (IN) | payer MEDICARE, MEDICAID ==
[2024-05-08] MEDS ORDERED: Morphine 4 MG/ML VIAL ONE (21:44)
[2024-05-08] MEDS ORDERED: Ondansetron PF 4 MG/2 ML Vial ONE (21:44)
[2024-05-08 22:02] LABS: #Basophils 0.04 10x3/uL (0.0-0.2); %Basophils 0.3 % (0.0-1.0); %Eosinophils 0.5 % (0.0-10.0); %Lymphocytes 15.7 % (21.0-51.0); %Monocytes 7.8 % (0.0-10.0); %Neutrophils 75.1 % (42.0-75.0); Hematocrit 33.8 % (36.0-47.0); Hemoglobin 11.2 g/dL (12.0-16.0); Mean Corpuscular HGB CONC 33.1 g/dL (32.0-36.0); Mean Corpuscular Hemoglobin 30.1 pg (27.0-31.0); Mean Corpuscular Volume 90.9 fL (78.0-98.0); Platelet Count 280 10x3/uL (130-400); RBC Distribution Width 14.2 % (11.5-14.5); Red Blood Cell (RBC) Count 3.72 mill/uL (4.20-5.40)
[2024-05-08 22:43] LABS: ALT (SGPT) 11 U/L (8-55); AST (SGOT) 19 U/L (5-34); Albumin 3.1 g/dL (3.4-4.8); Alkaline Phosphatase 59 U/L (40-110); Anion Gap 15 mmol/L (10-20); BUN (Urea Nitrogen) 17 mg/dL (9.8-20.1); Bilirubin, Total 0.4 mg/dL (0.2-1.2); Calc. Creatinine Clearance 0 mL/min (70-130); Calcium 8.8 mg/dL (7.8-10.44); Carbon Dioxide 22 mmol/L (23-31); Chloride 104 mmol/L (98-107); Estimated GFR 76; Globulin 4.3 g/dL (2.4-3.5); Glucose 107 mg/dL (80-115); Magnesium 2.1 mg/dL (1.6-2.6); Potassium 3.3 mmol/L (3.5-5.1); Protein, Total 7.4 g/dL (5.8-8.1); Sodium 138 mmol/L (136-145)
[2024-05-08] MEDS ORDERED: Acetaminophen 650 MG Suppository PR PRN (23:27)
[2024-05-08] MEDS ORDERED: Ketorolac Tromethamine 30 MG (1 mL) VIAL IVP PRN (23:27)
[2024-05-08] MEDS ORDERED: Acetaminophen 325 MG TAB PO PRN (23:30)
[2024-05-08] MEDS ORDERED: Ondansetron ODT 4 MG TAB SL PRN (23:30)
[2024-05-08] MEDS ORDERED: Ondansetron PF 4 MG/2 ML Vial IVP PRN (23:30)
[2024-05-09] MEDS ORDERED: Electrolyte Replacement Protocol 1 EACH FS SCH (00:15)
[2024-05-09] MEDS ORDERED: Ondansetron ODT 4 MG TAB PO PRN (00:26)
[2024-05-09] MEDS ORDERED: Lorazepam 2 MG/ML VIAL IM PRN (00:26)
[2024-05-09] MEDS ORDERED: Lorazepam 1 MG TAB PO PRN (00:26)
[2024-05-09] MEDS ORDERED: Electrolyte Replacement Protocol FS SCH (00:30)
[2024-05-09] MEDS ORDERED: Ampicillin/Sulbactam 3 GM VIAL ONE (00:43)
[2024-05-09] MEDS ORDERED: Sodium Chloride 0.9% 100 ML ONE (00:43)
[2024-05-09 01:24] LABS: Bacteria/HPF None Seen HPF (None Seen); Bilirubin Negative (Negative); Blood, Urine Negative (Negative); CAUTI Indications for Culture Pelvic or flank pain; Clarity Clear (Clear); Glucose, Urine (Dipstick) Normal (Negative); Ketone, Urine Negative (Negative); Leukocyte Negative Leu/uL (Negative); Nitrite Negative (Negative); Protein, Urine (Dipstick) Negative (Neg-Trace); RBC/HPF None Seen HPF (0-3); Specific Gravity, Urine 1.019 (1.002-1.036); Squamous Epithelial 0-3 HPF (0-3); Urobilinogen Normal mg/dL (Less than 2)
[2024-05-09 01:26] LABS: Urine Culture Reflex No No
[2024-05-09] MEDS: Ampicillin/Sulbactam 3 GM in Sodium Chloride 0.9% 100 ML IVPB SCH (01:46)
[2024-05-09] MEDS ORDERED: Morphine 2 MG/ML VIAL ONE (01:49)
[2024-05-09] MEDS ORDERED: Thiamine HCl 200 MG/2 ML VIAL ONE (01:50)
[2024-05-09] MEDS ORDERED: Potassium Bicarbonate/Cit Ac 20 MEQ TAB ONE (01:50)
[2024-05-09] MEDS: Sodium Chloride 0.9% 1,000 ML IV SCH (02:05)
[2024-05-09 02:06] LABS: Influenza A by NAA Not Detected (NotDetected); Influenza B by NAA Not Detected (NotDetected); SARS-CoV-2 NAA Rapid Test Not Detected (NotDetected)
[2024-05-09] MEDS: Morphine 2 MG/ML VIAL SLOW IVP PRN (02:06)
[2024-05-09] MEDS: Potassium Chloride 20 MEQ TAB PO SCH ×2 (02:06→10:15)
[2024-05-09] MEDS: Thiamine HCl 200 MG/2 ML VIAL SLOW IVP SCH (02:06)
[2024-05-09 05:59] LABS: #Basophils 0.04 10x3/uL (0.0-0.2); %Basophils 0.3 % (0.0-1.0); %Eosinophils 0.3 % (0.0-10.0); %Lymphocytes 11.7 % (21.0-51.0); %Monocytes 8.3 % (0.0-10.0); %Neutrophils 78.8 % (42.0-75.0); Hematocrit 35.3 % (36.0-47.0); Hemoglobin 11.6 g/dL (12.0-16.0); Mean Corpuscular HGB CONC 32.9 g/dL (32.0-36.0); Mean Corpuscular Hemoglobin 30.5 pg (27.0-31.0); Mean Corpuscular Volume 92.9 fL (78.0-98.0); Mean Platelet Volume 10.3 fL (7.4-10.4); Platelet Count 295 10x3/uL (130-400); RBC Distribution Width 14.3 % (11.5-14.5)
[2024-05-09 06:29] LABS: Phosphorus 3.2 mg/dL (2.3-4.7)
[2024-05-09 06:30] LABS: Anion Gap 14 mmol/L (10-20); BUN (Urea Nitrogen) 12 mg/dL (9.8-20.1); Calc. Creatinine Clearance 93 mL/min (70-130); Calcium 8.9 mg/dL (7.8-10.44); Carbon Dioxide 26 mmol/L (23-31); Chloride 103 mmol/L (98-107); Estimated GFR 91; Glucose 116 mg/dL (80-115); Potassium 3.5 mmol/L (3.5-5.1); Sodium 139 mmol/L (136-145)
[2024-05-09 09:39] VITALS: BMI 27.1
[2024-05-09] MEDS: Levothyroxine Sodium 50 MCG TAB PO SCH (10:11)
[2024-05-09] MEDS: Multivit, Therapeutic 1 TAB PO SCH (10:13)
[2024-05-09] MEDS: Folic Acid 1 MG TAB PO SCH (10:13)
[2024-05-09] MEDS: Famotidine 20 MG TAB PO SCH (10:14)
[2024-05-09] MEDS: Enoxaparin 40 MG (0.4 mL) SYRINGE SC SCH (10:14)
[2024-05-09] MEDS: Ketorolac Tromethamine 30 MG (1 mL) VIAL IVP SCH (13:20)
[2024-05-09] MEDS: Vancomycin (BATCH) 1.5 GM in Premix 1 BAG IVPB SCH (13:20)
[2024-05-09] MEDS: Amlodipine 5 MG TAB PO SCH (13:21)
[2024-05-09] MEDS ORDERED: Hydrochlorothiazide 25 MG TAB PO SCH (21:00)
[2024-05-09] MEDS ORDERED: Vancomycin 1 GM in Premix 1 BAG IVPB SCH (21:00)
[2024-05-09] MEDS: NS 0.9% w/ 20 MEQ KCL 1,000 ML/1,000 ML BAG IV SCH (21:40)
[2024-05-10] MEDS ORDERED: Lorazepam 1 MG TAB PO PRN (00:26)
[2024-05-10] MEDS: Vancomycin (BATCH) 1.25 GM in Premix 1 BAG IVPB SCH (05:36)
[2024-05-10 08:16] LABS: Vancomycin, Random 17.1 ug/mL (See Comment)
[2024-05-10] MEDS: Hydrochlorothiazide 25 MG TAB PO SCH (09:14)
[2024-05-10] MEDS: Amlodipine 5 MG TAB PO SCH ×2 (09:15→21:00)
[2024-05-10] MEDS: Pantoprazole DR 40 MG TAB PO SCH (09:15)
[2024-05-10] MEDS: Aspirin 325 mg Enteric Coated Tablet PO SCH (09:15)
[2024-05-10] MEDS: Ampicillin/Sulbactam 3 GM in Sodium Chloride 0.9% 100 ML IVPB SCH ×2 (15:08→21:00)
[2024-05-10 16:57] LABS: #Basophils 0.03 10x3/uL (0.0-0.2); %Basophils 0.5 % (0.0-1.0); %Eosinophils 2.9 % (0.0-10.0); %Lymphocytes 17.9 % (21.0-51.0); %Monocytes 9.2 % (0.0-10.0); %Neutrophils 68.4 % (42.0-75.0); Hematocrit 33.6 % (36.0-47.0); Hemoglobin 10.7 g/dL (12.0-16.0); Mean Corpuscular HGB CONC 31.8 g/dL (32.0-36.0); Mean Corpuscular Hemoglobin 30.3 pg (27.0-31.0); Mean Corpuscular Volume 95.2 fL (78.0-98.0); Mean Platelet Volume 8.9 fL (7.4-10.4); Platelet Count 258 10x3/uL (130-400); RBC Distribution Width 13.7 % (11.5-14.5); Red Blood Cell (RBC) Count 3.53 mill/uL (4.20-5.40)
[2024-05-10 17:20] LABS: Anion Gap 10 mmol/L (10-20); BUN (Urea Nitrogen) 8 mg/dL (9.8-20.1); Calc. Creatinine Clearance 90 mL/min (70-130); Calcium 8.5 mg/dL (7.8-10.44); Carbon Dioxide 29 mmol/L (23-31); Chloride 103 mmol/L (98-107); Estimated GFR 83; Glucose 148 mg/dL (80-115); Potassium 3.6 mmol/L (3.5-5.1); Sodium 138 mmol/L (136-145)
[2024-05-10] MEDS ORDERED: Amlodipine 5 MG TAB PO SCH (21:00)
[2024-05-10] MEDS: Acetaminophen 325 MG TAB PO PRN (21:01)
[2024-05-11 05:58] LABS: #Basophils 0.03 10x3/uL (0.0-0.2); %Basophils 0.6 % (0.0-1.0); %Eosinophils 3.7 % (0.0-10.0); %Lymphocytes 21.9 % (21.0-51.0); %Monocytes 11.2 % (0.0-10.0); %Neutrophils 61.7 % (42.0-75.0); Hematocrit 32.4 % (36.0-47.0); Hemoglobin 10.5 g/dL (12.0-16.0); Mean Corpuscular HGB CONC 32.4 g/dL (32.0-36.0); Mean Corpuscular Hemoglobin 30.8 pg (27.0-31.0); Mean Platelet Volume 9.7 fL (7.4-10.4); Platelet Count 283 10x3/uL (130-400); RBC Distribution Width 13.7 % (11.5-14.5); Red Blood Cell (RBC) Count 3.41 mill/uL (4.20-5.40)
[2024-05-11 06:14] LABS: Anion Gap 10 mmol/L (10-20); BUN (Urea Nitrogen) 8 mg/dL (9.8-20.1); Calc. Creatinine Clearance 95 mL/min (70-130); Calcium 8.7 mg/dL (7.8-10.44); Carbon Dioxide 30 mmol/L (23-31); Chloride 105 mmol/L (98-107); Estimated GFR 88; Glucose 112 mg/dL (80-115); Potassium 3.8 mmol/L (3.5-5.1); Sodium 141 mmol/L (136-145)
[2024-05-11] MEDS: Lorazepam 1 MG TAB PO PRN (10:23)
[2024-05-11] MEDS: Lorazepam 0.5 MG TAB PO SCH (11:06)
[2024-05-11] MEDS ORDERED: hydrALAZINE 25 MG TAB PO PRN (13:06)
[2024-05-11] MEDS ORDERED: Magnevist 469MG/ML 20 ML VIAL ONE (16:02)
[2024-05-11] MEDS: Ibuprofen 200 MG TAB PO SCH (18:17)
[2024-05-11] MEDS ORDERED: cloNIDine 0.1 MG TAB PO PRN (19:54)
[2024-05-11] MEDS: Chlorhexidine Gluconate 15 ML UDCUP SSP SCH (20:53)
[2024-05-12 05:34] LABS: #Basophils 0.03 10x3/uL (0.0-0.2); %Basophils 0.6 % (0.0-1.0); %Lymphocytes 26.4 % (21.0-51.0); %Monocytes 8.3 % (0.0-10.0); Hematocrit 34.9 % (36.0-47.0); Hemoglobin 11.3 g/dL (12.0-16.0); Mean Corpuscular HGB CONC 32.4 g/dL (32.0-36.0); Mean Corpuscular Hemoglobin 30.4 pg (27.0-31.0); Mean Corpuscular Volume 93.8 fL (78.0-98.0); Mean Platelet Volume 8.7 fL (7.4-10.4); Platelet Count 321 10x3/uL (130-400); RBC Distribution Width 13.5 % (11.5-14.5); Red Blood Cell (RBC) Count 3.72 mill/uL (4.20-5.40)
[2024-05-12 05:50] LABS: Phosphorus 4.9 mg/dL (2.3-4.7); Vancomycin, Random 24.7 ug/mL (See Comment)
[2024-05-12 05:51] LABS: Anion Gap 11 mmol/L (10-20); BUN (Urea Nitrogen) 8 mg/dL (9.8-20.1); Calc. Creatinine Clearance 99 mL/min (70-130); Calcium 9.5 mg/dL (7.8-10.44); Carbon Dioxide 31 mmol/L (23-31); Chloride 103 mmol/L (98-107); Estimated GFR 92; Glucose 107 mg/dL (80-115); Magnesium 2.4 mg/dL (1.6-2.6); Potassium 3.7 mmol/L (3.5-5.1); Sodium 141 mmol/L (136-145)
[2024-05-12] MEDS: Thiamine 100 MG TAB PO SCH (09:50)
[2024-05-12] MEDS: Ampicillin/Sulbactam 3 GM in Sodium Chloride 0.9% 100 ML IVPB SCH (14:20)
[2024-05-12] MEDS: Lorazepam 0.5 MG TAB PO PRN (20:20)
[2024-05-13 10:08] VITALS: BP 135/88; TEMP 98.1
[2024-05-13] MEDS: Vancomycin 1 GM in Premix 1 BAG IVPB SCH (12:33)
== END 2024-05-13 12:20 | disposition home or self-care (01) | DRG 872 ==
LOC: ERS 21:16 → ERHOLD 23:23 → 2NO 23:40 → MSONC 05-09 17:18
PROVIDERS: ADMIT Student in an Organized Health Care Education/Training Program; ATTEND Internal Medicine
DX: A41.9 Sepsis, unspecified organism (principal); L03.211 Cellulitis of face; K21.9 Gastro-esophageal reflux disease without esophagitis; E03.9 Hypothyroidism, unspecified; M06.9 Rheumatoid arthritis, unspecified; E87.6 Hypokalemia; F10.20 Alcohol dependence, uncomplicated; K02.9 Dental caries, unspecified; D53.9 Nutritional anemia, unspecified; N18.2 Chronic kidney disease, stage 2 (mild); I12.9 Hypertensive chronic kidney disease with stage 1 through stage 4 chronic kidney disease, or unspecified chronic kidney disease; Z88.1 Allergy status to other antibiotic agents; Z91.040 Latex allergy status; Z88.8 Allergy status to other drugs, medicaments and biological substances; Z79.82 Long term (current) use of aspirin; Z79.899 Other long term (current) drug therapy; Z90.710 Acquired absence of both cervix and uterus; Z98.49 Cataract extraction status, unspecified eye; K08.89 Other specified disorders of teeth and supporting structures; K04.7 Periapical abscess without sinus; F41.9 Anxiety disorder, unspecified; E78.5 Hyperlipidemia, unspecified
CPT/HCPCS: 36415; 70487; 70491; 70543; 71045; 80048; 80053; 80202; 81001; 82565; 83605; 83735; 84100; 85025; 86141; 87040; 96365; 96366; 96374; 96375; A9579; J0295; J1650; J1885; J2270; J2272; J2405; J3370; J3411; J3480; J3490; J7050; Q9967